=== PATIENT | female | born 1960 | race Caucasian/White ===

== ENCOUNTER 2022-07-22 00:06 | Observation (INO) ==
[2022-07-22] MEDS ORDERED: SODIUM CHLORIDE 1,000 ML IV STA (00:32)
[2022-07-22] MEDS ORDERED: HALDOL IVP ONE (00:32)
--- NOTE | 2022-07-22 00:42 | ED.PDOC ---
General ED Provider: Dr. MAYUR BARONE Chief Complaint: Nausea/Vomiting Stated Complaint: Patient is a 61 year old female who comes to the Er with complaints of severe nausea, vomiting and Diarrhea x 5 days. Vomiting 4 x in the last 24 hours. Also complains of fever. Home covid test was negative. States has had some belching for the last 5 days. Time Seen by Provider: 07/22/22 00:23 Mode of Arrival: Wheelchair Information Source: Patient Primary Care Provider: JEANNETTE EASON Nursing and Triage Documentation Reviewed and Agree: Yes Does patient meet sepsis criteria?: No System Inflammatory Response Syndrome: Not Applicable Sepsis Protocol: For patient's 13 years and over: Temp is 96.8 and below OR 101 and greater Pulse >90 BPM Resp >20/minute Acutely Altered Mental Status Are patient's symptoms suggestive of a new infection, such as: -Pneumonia -Skin, Soft Tissue -Endocarditis -UTI -Bone, Joint Infection -Implantable Device -Acute Abdominal Infection -Wound Infection -Meningitis -Blood Stream Catheter Infection -Unknown GI Complaint Exam Vomiting/Diarrhea Complaint/Exam Onset/Duration: 5 days Symptoms Are: Still present Episodes of Vomiting over last 24 Hours: 4 Episodes of Diarrhea Over Last 24 Hours: 3 (yellow) Initial Severity: Moderate Current Severity: Severe Character of Vomiting: Reports Non-bilious Character of Diarrhea: Reports Watery Aggravating: Reports Food Alleviating: Reports None Associated Signs and Symptoms: Denies Dizziness, Light-headedness, Melena, Hematemesis, Fever, Abdominal pain or Cramping Non-GI Risk Factors: Reports None Surgical Obstruction Risk Factors: Reports None Related Surgical History: Reports None Abdominal Findings: Present None Differential Diagnoses: Bowel Obstruction, Gastritis, PUD and Viral Gastroenteritis Review of Systems Review Of Systems Constitutional: Reports No symptoms GI: Reports Diarrhea, Nausea and Vomiting Musculoskeletal: Reports No symptoms Skin: Reports No symptoms Neurological: Reports Anxiety Endocrine: Reports No symptoms Hematologic/Lymphatic: Reports No symptoms All Other Systems: Reviewed and Negative PFSH Family History (Updated 07/22/22 @ 03:00 by KYLER GATES RN) Mother A-fib Renal disease Diabetes FATHER Dementia BROTHER Diabetes Surgical History (Updated 07/22/22 @ 03:04 by KYLER GATES RN) H/O repair of rotator cuff Hx of carpal tunnel repair Hx of gastric bypass Hx of neck surgery Hx of tubal ligation Physical Exam Physical Exam Appearance: Reports Obese Ill-appearing: Mild Pain Distress: None Eyes: Reports BO, EOMI, Conjunctiva clear and Conjunctiva inflammed ENT: Reports Ears normal and Nose normal Neck: Supple Respiratory: Reports Airway patent and Breath sounds clear Cardiovascular: Reports RRR, Pulses normal and No rub GI/: Reports Soft, Nontender and Other (obese ) Musculoskeletal: Reports Normal strength, ROM intact and No edema Skin: Reports Warm and Dry Neurological: Reports Sensation intact, Motor intact, Alert and Oriented Psychiatric: Reports Anxious Interpretation Radiology Interpretation Radiology Interpretation By: Radiologist Radiology Results: Negative Exam Interpreted: CT Scan EKG Interpretation Time of EKG #1: 00:48 Rate: Normal Rhythm: Sinus Ectopy: None [place]: NL Interpretation: non specific T wave changes Critical Care Note Critical Care Note Total Critical Care Time (mins): 30 Course Course Hematology/Chemistry: 07/22/22 00:55 07/22/22 00:55 Orders, Labs, Meds: Lab Review 07/22/22 07/22/22 07/22/22 00:55 00:55 00:55 WBC 7.32 RBC 4.53 Hgb 12.3 Hct 38.4 MCV 84.8 MCH 27.2 MCHC 32.0 RDW Coeff of Barbra 14.1 Plt Count 338 Immature Gran % (Auto) 0.3 Neut % (Auto) 50.8 Lymph % (Auto) 34.2 Petroleum % (Auto) 11.2 H Eos % (Auto) 2.7 Baso % (Auto) 0.8 Neut # (Auto) 3.7 Lymph # (Auto) 2.5 Petroleum # (Auto) 0.8 Eos # (Auto) 0.2 Baso # (Auto) 0.1 Immature Gran # (Auto) 0.0 Sodium 141.9 Potassium 2.79 L* Chloride 109.8 H Carbon Dioxide 23.9 Anion Gap 10.99 BUN 13.0 Creatinine 0.65 Estimated GFR (MDRD) 93.00 BUN/Creatinine Ratio 20.00 Glucose 109.0 H Calcium 9.04 Magnesium 2.00 Total Bilirubin 0.52 AST 37.8 H ALT 16.2 Alkaline Phosphatase 125.6 Total Creatine Kinase 143.4 H CK-MB (CK-2) Pending CK-MB (CK-2) % Pending Troponin I 0.010 Total Protein 7.15 Albumin 3.86 Globulin 3.29 Albumin/Globulin Ratio 1.17 Amylase 120.9 H Lipase 28.0 SARS CoV-2 RNA Rapid MASTER 07/22/22 01:27 WBC RBC Hgb Hct MCV MCH MCHC RDW Coeff of Barbra Plt Count Immature Gran % (Auto) Neut % (Auto) Lymph % (Auto) Petroleum % (Auto) Eos % (Auto) Baso % (Auto) Neut # (Auto) Lymph # (Auto) Petroleum # (Auto) Eos # (Auto) Baso # (Auto) Immature Gran # (Auto) Sodium Potassium Chloride Carbon Dioxide Anion Gap BUN Creatinine Estimated GFR (MDRD) BUN/Creatinine Ratio Glucose Calcium Magnesium Total Bilirubin AST ALT Alkaline Phosphatase Total Creatine Kinase CK-MB (CK-2) CK-MB (CK-2) % Troponin I Total Protein Albumin Globulin Albumin/Globulin Ratio Amylase Lipase SARS CoV-2 RNA Rapid MASTER Negative Orders Category Date Time Status PLACE PATIENT OBSERVATION .TO MEDSURG (MONITORED BED ADMISSION 07/22/22 01:36 Active ) EKG-(ED ONLY) Stat CARDIO 07/22/22 00:32 Completed ACTIVITY .Up ad Anh CARE 07/22/22 01:38 Active GIVE HS SNACK 2100 CARE 07/22/22 01:38 Active INTAKE & OUTPUT Q8HR CARE 07/22/22 01:36 Active TELEMETRY MONITORING TELE CARE 07/22/22 01:36 Active VITAL SIGNS Q4HR CARE 07/22/22 01:37 Active CLEAR LIQUID DIET DIETARY 07/22/22 Breakfast Ordered HS SNACK DIETARY 07/22/22 Dinner Ordered ED IV/MEDIPORT/POWERPORT .ONCE EMERGENCY 07/22/22 00:32 Active AMYLASE Stat LAB 07/22/22 00:55 Results CBC W/ AUTO DIFF DAILY@0600 LAB 07/22/22 07:45 Ordered CBC W/ AUTO DIFF DAILY@0600 LAB 07/23/22 06:00 Ordered CBC W/ AUTO DIFF Stat LAB 07/22/22 00:55 Completed COMPREHENSIVE METABOLIC PANEL DAILY@0600 LAB 07/22/22 07:45 Ordered COMPREHENSIVE METABOLIC PANEL DAILY@0600 LAB 07/23/22 06:00 Ordered COMPREHENSIVE METABOLIC PANEL Stat LAB 07/22/22 00:55 Results CREATINE KINASE Q8H LAB 07/22/22 07:45 Ordered CREATINE KINASE Q8H LAB 07/22/22 15:45 Ordered CREATINE KINASE Stat LAB 07/22/22 00:55 Results LIPASE Stat LAB 07/22/22 00:55 Results MAGNESIUM Stat LAB 07/22/22 00:55 Completed SARS COV-2 RNA RAPID MASTER Stat LAB 07/22/22 01:27 Completed TROPONIN I Q8H LAB 07/22/22 07:45 Ordered TROPONIN I Q8H LAB 07/22/22 15:45 Ordered TROPONIN I Stat LAB 07/22/22 00:55 Results URINALYSIS C & S IF INDICATED Stat LAB 07/22/22 00:32 Uncollected 0.9 % Sodium Chloride [Saline Flush] MEDS 07/22/22 00:32 Active 1 syr IVF PRN PRN Acetaminophen [Tylenol] MEDS 07/22/22 01:36 Active 650 mg PO Q4H PRN Enoxaparin Sodium [Lovenox] MEDS 07/22/22 09:00 Active 40 mg SUBCUT DAILY Haloperidol Lactate [Haldol] MEDS 07/22/22 00:32 Discontinued 1 mg IVP ONCE ONE Metoclopramide HCl [Reglan] MEDS 07/22/22 02:00 Active 5 mg IVP Q6H Ondansetron HCl/Pf [Zofran 4 mg/2 ml] MEDS 07/22/22 01:36 Active 4 mg IVP Q6H PRN Potassium Chloride [Potassium Chloride 20 Meq/100 ml MEDS 07/22/22 01:16 Discontinued Premix] 20 meq in 100 ml IV ONCE Potassium Chloride in 0.9%NaCl [Sodium Chloride 0.9%- MEDS 07/22/22 02:00 Active KCl 20 Meq] 1,000 ml IV 125 mls/hr Sodium Chloride 0.9% [Sodium Chloride] 1,000 ml MEDS 07/22/22 00:32 Discontinued IV BOLUS RESUSCITATION STATUS Routine OTHERS 07/22/22 01:[address] ABD/PEL WO RENAL STONE PROT Stat RADS 07/22/22 00:32 Completed Medications Generic Name Dose Route Start Last Admin Trade Name Freq PRN Reason Stop Dose Admin Acetaminophen 650 mg 07/22/22 01:36 Acetaminophen 325 Mg Tablet PO Q4H PRN Fever and Mild Pain Enoxaparin Sodium 40 mg 07/22/22 09:00 Enoxaparin Sodium 40 Mg/0.4 Ml Syr SUBCUT DAILY EUGENIA Potassium Chloride/Sodium Chloride 1,000 mls @ 125 mls/hr 07/22/22 02:00 07/22/22 02:59 Sodium Chloride 0.9%-Kcl 20 Meq IV 125 mls/hr .Q8H EUGENIA Administration Metoclopramide HCl 5 mg 07/22/22 02:00 07/22/22 03:39 Metoclopramide Hcl 10 Mg/2 Ml IVP 5 mg Q6H EUGENIA Administration Ondansetron HCl 4 mg 07/22/22 01:36 Ondansetron Hcl/Pf 4 Mg/2 Ml Sdv IVP Q6H PRN Nausea / Vomiting Sodium Chloride 1 syr 07/22/22 00:32 0.9% Sodium Chloride 10 Ml Disp.Syrin IVF PRN PRN To flush IV Discontinued Medications Generic Name Dose Route Start Last Admin Trade Name Freq PRN Reason Stop Dose Admin Haloperidol Lactate 1 mg 07/22/22 00:32 07/22/22 01:07 Haloperidol Lactate 5 Mg/Ml Vial IVP 07/22/22 00:33 1 mg ONCE ONE Administration Sodium Chloride 1,000 mls @ 1,000 mls/hr 07/22/22 00:32 07/22/22 01:08 Sodium Chloride IV 07/22/22 01:31 1,000 mls/hr BOLUS STA Administration Potassium Chloride 20 meq in 100 mls @ 50 mls/hr 07/22/22 01:16 07/22/22 02:09 Potassium Chloride 20 Meq/100 Ml Premix IV 07/22/22 03:15 50 mls/hr ONCE ONE Administration Vital Signs: Temp Pulse Resp BP Pulse Ox 07/22/22 00:06 97.2 F L 74 20 155/74 H 98 Discharge Plan Discharge Patient Disposition: PLACED OBSERVATION Discharge Problem: Hypokalemia, Nausea, Vomiting Diarrhea Qualifiers: Diarrhea type: unspecified type Qualified Code(s): R19.7 - Diarrhea, unspe cified Did you review [place] [employer] [facility]?: Not Applicable ED Provider: MAYUR BARONE Condition: Good Physician Progress Note: []
[2022-07-22 01:00] LABS: BASOPHILS # (AUTO) 0.1 K/uL (0-0.2); BASOPHILS % (AUTO) 0.8 % (0.0-3.0); EOSINOPHILS # (AUTO) 0.2 K/ul (0.0-0.7); EOSINOPHILS % (AUTO) 2.7 % (0.0-7.0); HEMATOCRIT 38.4 % (37.0-47.0); HEMOGLOBIN 12.3 g/dl (12.0-16.0); IMMATURE GRANULOCYTE % (AUTO) 0.3 % (0.0-5.0); LYMPHOCYTES # (AUTO) 2.5 K/uL (0.60-3.4); LYMPHOCYTES % (AUTO) 34.2 (10.0-50.0); MEAN CORPUSCULAR HEMOGLOBIN 27.2 pg (27.0-31.0); MEAN CORPUSCULAR VOLUME 84.8 fl (81.0-99.0); MONOCYTES # (AUTO) 0.8 K/uL (0.4-2.0); MONOCYTES % (AUTO) 11.2 (0-10); NEUTROPHILS # (AUTO) 3.7 K/ul (2.0-6.9); NEUTROPHILS % (AUTO) 50.8 % (42.2-75.2); PLATELET COUNT 338 10^3/uL (140-440); RDW COEFFICIENT OF VARIATION 14.1 % (11.6-14.8); RED BLOOD COUNT 4.53 10^6/ul (4.20-5.40); WHITE BLOOD COUNT 7.32 K/ul (4.6-10.2)
--- NOTE | 2022-07-22 01:10 | CT ---
EXAM: CT of the abdomen and pelvis without contrast. HISTORY: Nausea and vomiting. History of gastric bypass. PROCEDURE: Contiguous axial CT images of the abdomen and pelvis without contrast with coronal and sa gittal reformats. All CT scans are performed using dose optimization techniques as appropriate to a performed exam including the following: Automated exposure control, Adjustment of the mA and/or kV ac cording to patient size, Use of iterative reconstruction technique. FINDINGS: The liver, gallbladder, pancreas, spleen, adrenal glands and kidneys are normal in appearan ce. The bladder is adequately filled and normal in appearance. The abdominal aorta is within normal limits in size. There are atherosclerotic calcifications in the major arteries of the abdomen and p omar. There are gastric and small bowel operative changes, consistent with gastric bypass. The marli endix and colon are normal in appearance. No free fluid or free air in the abdomen or pelvis. There is a small umbilical hernia containing only fat. The uterus is unremarkable. There are degenerativ e changes in the spine. Impression: Gastric bypass as described. Umbilical hernia as described. All CT scans are performed using dose optimization techniques as appropriate to the performed exam an d include at least one of the following: Automated exposure control, adjustment of the mA and/or kV according t o size, and the use of iterative reconstruction technique.
[2022-07-22 01:13] LABS: ALANINE AMINOTRANSFERASE 16.2 U/L (0-35); ALBUMIN 3.86 g/dL (3.5-5.0); ALKALINE PHOSPHATASE 125.6 U/L (53-141); AMYLASE 120.9 U/L (30-110); ASPARTATE AMINO TRANSFERASE 37.8 U/L (14-36); BILIRUBIN,TOTAL 0.52 mg/dL (0.2-1.3); CALCIUM 9.04 mg/dL (8.4-10.2); CARBON DIOXIDE 23.9 mmol/L (22-30.0); CHLORIDE 109.8 mmol/L (98-107); CREATINE KINASE 143.4 U/L (30-135); CREATININE 0.65 mg/dL (0.60-1.30); SODIUM 141.9 mmol/L (134.5-145); TOTAL PROTEIN 7.15 g/dL (6.3-8.2)
[2022-07-22 01:15] LABS: POTASSIUM 2.79 mmol/L (3.5-5.1)
[2022-07-22] MEDS ORDERED: POTASSIUM CHLORIDE 20 MEQ/100 ML PREMIX 20 MEQ/100 ML BAG IV ONE (01:16)
[2022-07-22] MEDS ORDERED: TYLENOL PO PRN (01:36)
[2022-07-22] MEDS ORDERED: ZOFRAN 4 MG/2 ML IVP PRN (01:36)
[2022-07-22 02:50] VITALS: BMI 45.7
[2022-07-22] MEDS: SODIUM CHLORIDE 0.9%-KCL 20 MEQ 1,000 ML IV SCH ×3 (02:59→19:36)
[2022-07-22] MEDS: REGLAN IVP SCH ×4 (03:39→19:35)
[2022-07-22 07:51] LABS: BASOPHILS % (AUTO) 0.7 % (0.0-3.0); EOSINOPHILS # (AUTO) 0.1 K/ul (0.0-0.7); EOSINOPHILS % (AUTO) 1.3 % (0.0-7.0); HEMATOCRIT 35.6 % (37.0-47.0); HEMOGLOBIN 11.3 g/dl (12.0-16.0); IMMATURE GRANULOCYTE % (AUTO) 0.2 % (0.0-5.0); LYMPHOCYTES # (AUTO) 1.9 K/uL (0.60-3.4); LYMPHOCYTES % (AUTO) 31.5 (10.0-50.0); MEAN CORPUSCULAR HEMOGLOBIN 27.5 pg (27.0-31.0); MEAN CORPUSCULAR HGB CONC 31.7 (31.8-35.4); MEAN CORPUSCULAR VOLUME 86.6 fl (81.0-99.0); MONOCYTES # (AUTO) 0.7 K/uL (0.4-2.0); MONOCYTES % (AUTO) 11.1 (0-10); NEUTROPHILS # (AUTO) 3.4 K/ul (2.0-6.9); NEUTROPHILS % (AUTO) 55.2 % (42.2-75.2); PLATELET COUNT 293 10^3/uL (140-440); RDW COEFFICIENT OF VARIATION 14.2 % (11.6-14.8); RED BLOOD COUNT 4.11 10^6/ul (4.20-5.40); WHITE BLOOD COUNT 6.06 K/ul (4.6-10.2)
[2022-07-22 08:03] LABS: ALANINE AMINOTRANSFERASE 14.1 U/L (0-35); ALBUMIN 3.51 g/dL (3.5-5.0); ASPARTATE AMINO TRANSFERASE 28.1 U/L (14-36); BILIRUBIN,TOTAL 0.46 mg/dL (0.2-1.3); BLOOD UREA NITROGEN 12.6 mg/dL (7-17); CALCIUM 8.35 mg/dL (8.4-10.2); CARBON DIOXIDE 26.7 mmol/L (22-30.0); CHLORIDE 110.6 mmol/L (98-107); CREATININE 0.65 mg/dL (0.60-1.30); GLUCOSE 97.4 mg/dL (74-106); POTASSIUM 3.35 mmol/L (3.5-5.1); SODIUM 142.3 mmol/L (134.5-145); TOTAL PROTEIN 6.46 g/dL (6.3-8.2)
[2022-07-22 08:10] LABS: CREATINE KINASE 134.6 U/L (30-135)
[2022-07-22] MEDS: PROTONIX IV IVP SCH (09:15)
[2022-07-22] MEDS: PAXIL PO SCH (09:39)
[2022-07-22] MEDS: WELLBUTRIN XL PO SCH (09:40)
[2022-07-22] MEDS: LOVENOX SUBCUT SCH (09:40)
[2022-07-22] MEDS: ZESTRIL PO SCH (09:41)
[2022-07-22 13:04] LABS: BILIRUBIN,URINE 1+ (NEGATIVE); CLARITY,URINE Clear (CLEAR); COLOR,URINE Dark (YELLOW); GLUCOSE, URINE (UA) Negative (NEGATIVE); KETONES,URINE Trace (NEGATIVE); LEUKOCYTE ESTERASE ,URINE Negative (NEGATIVE); NITRITE,URINE Negative (NEGATIVE); PH,URINE 5.5 (5-9); PROTEIN,URINE Trace (NEGATIVE); URINE, BLOOD Negative (NEGATIVE); UROBILINOGEN,URINE 0.2 (0.2)
[2022-07-22 13:20] LABS: BACTERIA,URINE 2+ (NOT PRESENT); MUCUS,URINE 2+ (NOT PRESENT); SQUAMOUS EPITHELIAL CELL,UR 20-30 (0-5)
[2022-07-22 16:08] LABS: CREATINE KINASE 137.5 U/L (30-135)
[2022-07-22 16:08] LABS: TROPONIN I < 0.012 ng/ml (0.0000-0.120)
[2022-07-22 16:22] LABS: TROPONIN I < 0.012 ng/ml (0.0000-0.120)
[2022-07-22 16:24] LABS: CREATINE KINASE MB 0.821 ng/ml (0.0-2.38)
[2022-07-22 17:32] LABS: TROPONIN I < 0.012 ng/ml (0.0000-0.120)
[2022-07-23] MEDS: SODIUM CHLORIDE 0.9%-KCL 20 MEQ 1,000 ML IV SCH (03:01)
[2022-07-23] MEDS: REGLAN IVP SCH ×2 (03:05→08:41)
[2022-07-23 05:18] LABS: BASOPHILS % (AUTO) 0.7 % (0.0-3.0); EOSINOPHILS # (AUTO) 0.2 K/ul (0.0-0.7); EOSINOPHILS % (AUTO) 3.8 % (0.0-7.0); HEMATOCRIT 34.8 % (37.0-47.0); HEMOGLOBIN 10.8 g/dl (12.0-16.0); IMMATURE GRANULOCYTE % (AUTO) 0.2 % (0.0-5.0); LYMPHOCYTES # (AUTO) 1.8 K/uL (0.60-3.4); LYMPHOCYTES % (AUTO) 33.3 (10.0-50.0); MEAN CORPUSCULAR HEMOGLOBIN 27.1 pg (27.0-31.0); MEAN CORPUSCULAR VOLUME 87.4 fl (81.0-99.0); MONOCYTES # (AUTO) 0.8 K/uL (0.4-2.0); MONOCYTES % (AUTO) 13.7 (0-10); NEUTROPHILS # (AUTO) 2.7 K/ul (2.0-6.9); NEUTROPHILS % (AUTO) 48.3 % (42.2-75.2); PLATELET COUNT 271 10^3/uL (140-440); RDW COEFFICIENT OF VARIATION 14.3 % (11.6-14.8); RED BLOOD COUNT 3.98 10^6/ul (4.20-5.40); WHITE BLOOD COUNT 5.53 K/ul (4.6-10.2)
[2022-07-23 05:27] LABS: ALANINE AMINOTRANSFERASE 13.9 U/L (0-35); ALBUMIN 3.19 g/dL (3.5-5.0); ALKALINE PHOSPHATASE 100.4 U/L (53-141); ASPARTATE AMINO TRANSFERASE 25.5 U/L (14-36); BILIRUBIN,TOTAL 0.42 mg/dL (0.2-1.3); BLOOD UREA NITROGEN 10.9 mg/dL (7-17); CALCIUM 8.32 mg/dL (8.4-10.2); CARBON DIOXIDE 26.5 mmol/L (22-30.0); CHLORIDE 112.3 mmol/L (98-107); CREATININE 0.61 mg/dL (0.60-1.30); GLUCOSE 87.4 mg/dL (74-106); POTASSIUM 3.4 mmol/L (3.5-5.1); SODIUM 142.5 mmol/L (134.5-145); TOTAL PROTEIN 6.18 g/dL (6.3-8.2)
[2022-07-23] MEDS: ZESTRIL PO SCH (08:31)
[2022-07-23] MEDS: WELLBUTRIN XL PO SCH (08:31)
[2022-07-23] MEDS: PAXIL PO SCH (08:31)
[2022-07-23] MEDS: LOVENOX SUBCUT SCH (08:31)
[2022-07-23] MEDS: PROTONIX IV IVP SCH (09:26)
[2022-07-23 10:16] VITALS: BP 134/80; TEMP 97.9
[2022-07-23] MEDS ORDERED: K-DUR PO ONE (12:04)
[2022-07-23] MEDS ORDERED: DIFLUCAN PO ONE (12:05)
--- NOTE | 2022-07-23 12:11 | PCM.PROG ---
Date Seen by Provider: 07/23/22 Time Seen by Provider: 12:00 Subjective: Tolerating diet. Diarrhea resolved. Objective: Vitals: T=97.9 F, P=68, R=16, GQ=590/80, SPO2=97 Patient alert and in NAD. Eating lunch. HEENT: [] Neck: []supple Lungs: [] clear and BS equal CVS: []RRR Abdomen: []Flat, soft and nontender. Extremities: [] Neurological: [] Skin: [] Lab/Tests/Diagnostic Imaging: [] (1) Hypokalemia: Status: Acute Code(s): E87.6 - Hypokalemia SNOMED Code(s): 61009556 Assessment: Potassium 3.4 today (2) Nausea: Status: Acute Code(s): R11.0 - Nausea SNOMED Code(s): 610574060 Assessment: resolved (3) Vomiting: Status: Acute Code(s): R11.10 - Vomiting, unspecified SNOMED Code(s): 357917042 Assessment: resolved (4) Diarrhea: Status: Acute Code(s): R19.7 - Diarrhea, unspecified SNOMED Code(s): 24549195 Assessment: resolved Plan: Will supplement potassium. Patient to be discharged to home. Will send a prescription for zofran.
--- NOTE | 2022-07-23 13:20 | PCM.DC ---
Final Diagnosis: acute gastroenteritis hypokalemia Physical Exam Appearance: Well-appearing, No pain distress and Well-nourished Ill-appearing: None Pain Distress: None Eyes: Not Examined ENT: Nose normal and Oropharynx normal Neck: Supple Respiratory: Airway patent, Breath sounds clear and Breath sounds equal Cardiovascular: RRR, No rub and No murmur GI/: Soft, Nontender, No masses, Bowel sounds normal and No Organomegaly Musculoskeletal: Normal strength, ROM intact and No edema Skin: Warm, Dry and Normal color Neurological: Sensation intact, Motor intact, Alert and Oriented Psychiatric: Affect appropriate and Mood appropriate (1) Hypokalemia: Status: Acute Code(s): E87.6 - Hypokalemia SNOMED Code(s): 76503377 (2) Nausea: Status: Acute Code(s): R11.0 - Nausea SNOMED Code(s): 311864438 (3) Vomiting: Status: Acute Code(s): R11.10 - Vomiting, unspecified SNOMED Code(s): 730704665 (4) Diarrhea: Status: Acute Code(s): R19.7 - Diarrhea, unspecified SNOMED Code(s): 45998277 Qualifiers: Diarrhea type: unspecified type Qualified Code(s): R19.7 - Diarrhea, unspecified Reason for Hospitalization: Patient admitted with nausea, emesis, diarrhea and acute hypokalemia Prognosis/Condition at Discharge: Condition at discharge was good. Medications at Discharge: Patient discharged with a prescription for zofran Lab/Diagnostics: Potassium was 3.4 prior to receiving KCl 40meq PO prior to discharge Education Provided to Patient and Family: gastroenteritis Follow-ups: Follow up with your primary care provider within one week. Discharge Disposition: Home Hospital Course: Patient admitted with symptoms of gastroenteritis and secondary hypokalemia. She was rehydrated with IVF and did receive supplemental potassium. Patient was also treated with zofran. She had her diet gradually advanced. Nausea, emesis and diarrhea resolved. Her hypokalemia was corrected. Plan: Patient was discharged to home and instructed to follow up with her primary care provider within one week.
[2022-07-23] MEDS ORDERED: FLUZONE QUAD 2022-2023 SYRINGE IM ONE (14:06)
== END 2022-07-23 15:10 | disposition home or self-care (01) ==
LOC: MEDSURG A 00:06 → ED 00:06 → MEDSURG A 02:40
PROVIDERS: ADMIT Internal Medicine Geriatric Medicine; ATTEND Surgery
DX: Z79.899 Other long term (current) drug therapy; R11.10 Vomiting, unspecified; Z20.822 Contact with and (suspected) exposure to COVID-19; E87.6 Hypokalemia; Z51.81 Encounter for therapeutic drug level monitoring; R11.0 Nausea; K52.9 Noninfective gastroenteritis and colitis, unspecified